=== PATIENT | female | born 1985 | race Caucasian/White ===

== ENCOUNTER 2020-10-28 11:56 | Inpatient (IN) | payer OTHER ==
[~2020-10-28] VITALS: Ht 160 cm; Wt 94.4 kg
[2020-10-28 12:07] VITALS: BP 179/90
[2020-10-28 12:43] LABS: HEMATOCRIT 43.2 % (37.0-47.0); MEAN CELL VOLUME 82.6 fl (81.0-99.0); MEAN CORPUSCULAR HGB 28.1 pg (27.0-31.0); PLATELET COUNT AUTOMATED 413 10*3/uL (130-400); RED BLOOD COUNT 5.23 10*6/uL (4.10-5.10); RED CELL DISTRI WIDTH 12.4 % (0-14.5); WHITE BLOOD COUNT 12.6 10*3/uL (4.8-10.8)
[2020-10-28 13:04] LABS: BILIRUBIN Negative (Negative); BLOOD Trace-Lysed (Negative); CLARITY Clear (Clear); COLOR Yellow (Yellow); GLUCOSE Negative (Negative); KETONE Negative (Negative); LEUKO ESTERASE Negative (Negative); NITRITE Negative (Negative); SPECIFIC GRAVITY 1.015 (1.001-1.030); UROBILINOGEN 0.2 E.U./dl (0.0-1.0)
[2020-10-28 13:10] LABS: ALBUMIN 4.2 gm/dl (3.1-4.5); ALKALINE PHOSPHATASE 70 U/L (45-117); BUN 8 mg/dl (7-24); CHLORIDE 105 mmol/L (98-107); CREATININE 0.79 mg/dL (0.55-1.02); LIPASE 62 U/L (73-393); PLATELET SUFFICIENCY HIGH (NORMAL); POTASSIUM 4.3 mmol/L (3.5-5.1); SGOT/AST 26 IU/L (3-35); SGPT/ALT 29 U/L (12-78); SODIUM 139 mmol/L (136-145); TOTAL CELLS COUNTED 100 #CELLS; TOTAL PROTEIN 8.3 gm/dL (6.4-8.2)
[2020-10-28 13:12] LABS: PH 8.5 (4.5-8.0)
[2020-10-28 13:13] LABS: TROPONIN I < 0.015 ng/ml (<0.045)
[2020-10-28 13:29] LABS: BACTERIA TRACE; MUCOUS TRACE; WBC 0-2 wbc/hpf (0-5)
[2020-10-28 16:57] VITALS: BP 153/86
[2020-10-28 20:08] VITALS: BP 178/97
[2020-10-28 20:15] VITALS: BP 181/105
[2020-10-28] MEDS ORDERED: BUPRENORPHINE-1 EACH SL (20:53)
[2020-10-28] MEDS ORDERED: 'CLONIDINE0.1 MG PO (20:53)
[2020-10-28] MEDS ORDERED: GOOD NEIGHBOR L10 MG PO (20:54)
[2020-10-28] MEDS ORDERED: ONDANSETRON HYDR4 MG PO (20:57)
[2020-10-28] MEDS ORDERED: BACLOFEN5 MG PO (21:02)
[2020-10-29] VITALS: BP 139/99
[2020-10-29 05:54] LABS: BASO % 0.2 % (0.0-1.0); HEMATOCRIT 45.5 % (37.0-47.0); LYMPH # 1.7 10*3/uL (1.3-4.4); LYMPH % 12.8 % (27.0-41.0); MEAN CELL VOLUME 83.6 fl (81.0-99.0); MEAN CORPUSCULAR HGB 28.1 pg (27.0-31.0); MEAN CORPUSCULAR HGB CONC 33.6 g/dl (33.0-37.0); MEAN PLATELET VOLUME 9.6 fl (9.6-12.3); NEUT # 10.2 10*3/uL (2.3-7.9); NEUT % 78.5 % (47.0-73.0); PLATELET COUNT AUTOMATED 445 10*3/uL (130-400); RED BLOOD COUNT 5.44 10*6/uL (4.10-5.10); RED CELL DISTRI WIDTH 12.9 % (0-14.5)
[2020-10-29 06:02] LABS: ALKALINE PHOSPHATASE 64 U/L (45-117); BUN 17 mg/dl (7-24); CHLORIDE 103 mmol/L (98-107); CHOLESTEROL 195 mg/dL (<200); FREE T4 0.87 ng/dl (0.76-1.46); LDL CHOLESTEROL 121 mg/dL (9-159); POTASSIUM 3.8 mmol/L (3.5-5.1); SGOT/AST 15 IU/L (3-35); SGPT/ALT 24 U/L (12-78); SODIUM 139 mmol/L (136-145); TOTAL PROTEIN 8.6 gm/dL (6.4-8.2); TRIGLYCERIDES 90 mg/dl (<150)
[2020-10-29 06:06] LABS: THYROID STIM HORMONE (HS) 0.955 uIU/ml (0.358-4.75)
[2020-10-29 06:33] LABS: ACT PARTIAL THROMBO TIME 23.3 SECONDS (20.0-32.1)
[2020-10-29 07:53] LABS: VITAMIN D, 25-HYDROXY 20.9 ng/mL (30-100)
[2020-10-29 08:00] VITALS: BP 161/93
[2020-10-29 12:00] VITALS: BP 158/85
[2020-10-29] MEDS ORDERED: PHENERGAN25 M3 PO (13:49)
[2020-10-29] MEDS ORDERED: ONDANSETRON HYDR4 MG PO (13:49)
== END 2020-10-29 15:32 | disposition home or self-care (01) ==
LOC: ED 11:56 → EDHOLD 16:56 → 4E 16:56
PROVIDERS: Physician Assistant; Social Worker Clinical; ADMIT Student in an Organized Health Care Education/Training Program; ATTEND Student in an Organized Health Care Education/Training Program
DX: K80.70 Calculus of gallbladder and bile duct without cholecystitis without obstruction (principal); K82.8 Other specified diseases of gallbladder; F12.10 Cannabis abuse, uncomplicated; F11.29 Opioid dependence with unspecified opioid-induced disorder; D72.825 Bandemia; R73.9 Hyperglycemia, unspecified; F17.210 Nicotine dependence, cigarettes, uncomplicated; R80.9 Proteinuria, unspecified; I16.0 Hypertensive urgency; R31.21 Asymptomatic microscopic hematuria; D47.3 Essential (hemorrhagic) thrombocythemia; E55.9 Vitamin D deficiency, unspecified; Z98.891 History of uterine scar from previous surgery; Z88.6 Allergy status to analgesic agent; Z88.0 Allergy status to penicillin; Z98.51 Tubal ligation status; Z71.6 Tobacco abuse counseling